=== PATIENT | female | born 1965 | race Caucasian/White ===

== ENCOUNTER 2017-03-07 10:25 | Emergency (ER) | payer OTHER, BC ==
[~2017-03-07] VITALS: Ht 172.7 cm; Wt 68.0 kg
[~2017-03-07 10:25] MED LIST: CIPR-9 PO; METR-1 PO; MONT10TA2 PO; ULTR50TA5 PO
[2017-03-07 10:27] VITALS: BP 161/102; PULSE 82; RESP 20; TEMP 97.8; O2SAT 98
[2017-03-07 10:34] VITALS: BP 149/80; PULSE 106; RESP 16; TEMP 98.6; O2SAT 97
[2017-03-07 10:37] VITALS: BP 140/95; PULSE 83
[2017-03-07] MEDS ORDERED: ROBA500T PO (10:52)
[2017-03-07] MEDS ORDERED: IBUP800T23 PO (10:52)
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
== END 2017-03-07 10:58 | disposition home or self-care (01) ==
LOC: NEPK 10:25
DX: S39.012A Strain of muscle, fascia and tendon of lower back, initial encounter (principal); M62.830 Muscle spasm of back; I10 Essential (primary) hypertension; Z72.0 Tobacco use; V89.2XXA Person injured in unspecified motor-vehicle accident, traffic, initial encounter
CPT/HCPCS: 99282